=== PATIENT | male | born 1955 ===

== ENCOUNTER 2016-11-15 07:17 | Day surgery (SDC) | payer OTHER ==
[2016-11-14 14:00] VITALS: BMI 33.5
[2016-11-15 09:04] LABS: BASO # 0.01 K/mm3 (0.0-2.0); BASO % 0.2 % (0.0-3.0); EOS # 0.1 (0.0-0.7); EOS % 1.9 % (1.5-5.0); GRAN # 3.74 (1.4-6.5); GRAN % 59.6 % (50.0-68.0); HEMATOCRIT 43.6 % (42.0-52.0); LYMPH # 1.9 (1.2-3.4); LYMPH % 30.3 % (22.0-35.0); MEAN CELL VOLUME 89.3 fl (80.0-105.0); MEAN CORPUSCULAR HEMOGLOBIN 30.5 pg (25.0-35.0); MEAN CORPUSCULAR HGB CONC 34.2 g/dl (31.0-37.0); MEAN PLATELET VOLUME 10.3 fl (7.0-11.0); MONO # 0.5 (0.1-0.6); RED CELL DISTRIBUTION WIDTH 12.7 % (11.5-14.5); WHITE BLOOD COUNT 6.3 10^3/ul (4.5-11.0)
[2016-11-15 09:06] LABS: ALB/GLOB RATIO 1.4 (1.1-1.8); ALKALINE PHOSPHATASE 82 U/L (38-126); ALT/SGPT 43 U/L (7-56); AST/SGOT 29 U/L (17-59); BLOOD UREA NITROGEN 16 mg/dL (7-21); CALCIUM 8.7 mg/dL (8.4-10.5); CARBON DIOXIDE 26 mmol/L (21-33); CHLORIDE 108 mmol/L (98-107); GFR AFRICAN-AMERICAN > 60; GLUCOSE,RANDOM 115 mg/dL (70-110); SODIUM 144 mmol/L (132-148)
[2016-11-15] MEDS ORDERED: Propofol 10 mg/ml Inj (20 ML) ONE ×3 (09:13→10:24)
[2016-11-15] MEDS ORDERED: cefTRIAXone (Rocephin) 1 gm Inj ONE (09:35)
[2016-11-15] MEDS ORDERED: Midazolam 2 MG/2 ML VIAL ONE (09:53)
[2016-11-15] MEDS ORDERED: Gentamicin 80 mg/2mL Inj. IVPB ONE (10:05)
[2016-11-15] MEDS ORDERED: Gentamicin 80mg/50ml NS 80 MG/50 ML BAG IVPB ONE (10:09)
[2016-11-15] MEDS ORDERED: Lidocaine 2% Jelly (Uro-Jet) TOP ONE (10:15)
[2016-11-15] MEDS ORDERED: Lidocaine 2% Jelly (Uro-Jet) ONE (10:36)
[2016-11-15] MEDS ORDERED: HYDROmorphone 0.5 mg/0.5 ml ISec IVP PRN (10:43)
[2016-11-15] MEDS ORDERED: Lactated Ringer's 1,000 ML IV SCH (10:45)
[2016-11-15 10:53] VITALS: RESP 18
--- NOTE | 2016-11-15 11:35 | CARD ---
APPROVED REPORT EKG Measurement Heart [id number] <Conclusion> Normal sinus rhythm Normal ECG
[2016-11-15 11:42] VITALS: BP 116/67; PULSE 56; TEMP 97.7; O2SAT 97
[2016-11-15] MEDS ORDERED: Oxycodone/Acetaminophen 5/325 mg Tab PO PRN (12:13)
--- NOTE | 2016-11-28 08:49 | HP ---
UROLOGY ADMISSION HISTORY AND PHYSICAL, RELATIVE EMERGENCY ADMISSION REASON FOR ADMISSION: Gross hematuria and urinary retention. HISTORY OF PRESENT ILLNESS: Mr. Mello is a very pleasant gentleman, I know quite well from years back, I had treated him for bladder stone disease and urinary retention. He was then subsequently doing better with medical therapy, most recently presented with gross hematuria, and was found to have bladder stones and we previously did a cysto with a biopsy, actually an abnormality of the bladder neck. This is actually not malignancy, it is just inflammatory. He is here now because I was not able to get more stones out. He has been passing stones on his own. He is here for a cysto and removal of stones, but really our recommendations also would be consider having the prostatic urethra, but for now, for various reasons, particularly ejaculatory dysfunction, he is concerned. So, the plan today is cysto, removal of bladder stones, see the addendum at the end and I would then discuss of the prostate. The patient is interested in microwave thermal therapy. I have discussed with him the success; however, I have also discussed and agree the less invasion, less anesthesia, and less complications. After discussing options, plan for today is to removal of the stones as best as possible (I explained to the patient that sometimes it is difficult) and we discussed various options. See the addendum at the end of the note. The patient has gross hematuria, urinary retention, voiding dysfunction and is here now for cystoscopy removal of bladder stones and then further plans to follow specifically we are going to take care of the prostate. PAST MEDICAL AND SURGICAL HISTORY: No history of an IN or CVA; otherwise, unremarkable as listed on the chart. MEDICATIONS: As listed on the chart. SOCIAL HISTORY: He comes to the office with his . She is a part of the care. Otherwise an unremarkable history. No history of alcohol abuse. REVIEW OF SYSTEMS: No weight loss, chest pain, or shortness of breath. PHYSICAL EXAMINATION: GENERAL: A well-nourished male, in no apparent distress. VITAL SIGNS: Within normal limits as listed in the chart. HEENT: Sclerae anicteric, non-injected. No adenopathy. LUNGS: Clear. HEART: Normal S1 and S2. ABDOMEN: Overall soft and nontender. No flank mass. GENITALIA: He has normal phallus . RECTAL: A 30 g prostate that is smooth. LABORATORY DATA: See chart PSA, BUN and creatinine. DIAGNOSES: Gross hematuria, urinary retention, and bladder stones. PLAN: As follows, the patient is being admitted as a relative emergency re-presenting to me, I have not seen him for a while, and however, representing with the above findings, urinary retention and voiding dysfunction. We discussed options with the patient of risks, benefits, and alternatives. After discussing those options with the patient, he is here now for a cystoscopy, removal of bladder stones. 1. Antibiotic prophylaxis. 2. Cystoscopy. 3. Further plans will follow. I discussed with the patient risks, benefits, and alternatives. ADDENDUM: Please see the operative report. Basically, we were able to eliminate probably no less than 25 to 30 stones. There are still little two stone fragments, but various reasons, bleeding concerns and other factors, the patient has two little fragments that are about 2 mm each. I mentioned this and discussed with the patient. Further plans and recommendations. See other notes that are dictated regarding this patient. The plan will be for now keeping the Barney catheter in place and then discussing options. My recommendations can be for GreenLight laser TURP. The patient will be best served by this. Further plans to follow, but that would be the plans and recommendations. Jesse Sosa MD
--- NOTE | 2016-11-28 08:49 | OP ---
UROLOGY OPERATIVE REPORT PROCEDURE DATE: 11/15/2016 PREOPERATIVE DIAGNOSES: Urolithiasis, hematuria, bladder stones, urinary retention, and voiding dysfunction. POSTOPERATIVE DIAGNOSES: Urolithiasis, hematuria, bladder stones, urinary retention, and voiding dysfunction. PROCEDURE: Cystoscopy and removal of bladder stones. SURGEON: Sandro Sosa MD. ESTIMATED BLOOD LOSS: Less than 10 mL. COMPLICATIONS: There were no complications. INDICATIONS: See history and physical for further details. INDICATION FOR PROCEDURE: Basically as follows: The patient is a very pleasant gentleman who is years old. He has a tremendously large prostate. We discussed the options previously to the patient. My recommendation actually is for an open suprapubic prostatectomy. At this point, he has refused this and he wants other alternatives. See the plans and addendum at the end of the note because we are planning for microwave thermotherapy (my recommendation is that this will work at best half of the time) for this patient with retention and a tremendously large prostate but he is now here just to remove the bladder stones. I do want to mention that previously we have treated him. There is an old note on the patient as well I have had a chance to review. The patient has longstanding history of urinary retention, voiding dysfunction, and bladder stones. Previously, we were able to eliminate all the stones. Today, I do want to mention that there were two stones that are about a millimeter or 2 for whatever reason that we were not able to grab out but there was no less than 20-25 stones that we sent off to the lab. FINDINGS: Normal anterior urethra. No strictures. Verumontanum is visually occlusive, large. There is a minimal amount of intravesical component to the bladder, but it is long and large, it is about 3 cm (it is conceivable to be amenable to a TURP, although based on the presence of the bladder stones and the large volume and the recurrence, I have discussed with the patient and my real recommendation was to consider an open prostatectomy or consider a TURP, but the patient at this point is very concerned about other issues, particularly ejaculatory dysfunction and the like.) He is here now for the above procedure. DESCRIPTION OF PROCEDURE: After obtaining informed consent, the patient was placed on the table. Routine monitor was placed. Time-out was called to confirm the patient and positioning. We introduced the cystoscope via urethra. We identified the bladder stones. There are no other abnormalities. The verumontanum is about 3 cm visually occlusive. We identified the bladder stones. At this point, they are all relatively small. We used an plasterer rough and irrigated out a few. Upon reinspection, there is still more. We now converted to a resectoscope, a 26-Italian diameter. We irrigated copiously. Again, we were able to irrigate now out all the stones. There are still after inspecting a few different times. We used the evacuator and even the syringe to try to suck back but there seems to be two stones that are more embedded. At this point though, I was worried about bleeding and the like. So we replaced the patient with a Barney catheter via the urethra and terminated the procedure. Overall, the patient tolerated the procedure well without complication and was brought to recovery room in stable condition with an indwelling Barney catheter. ADDENDUM: I am going to discuss with the patient that my recommendation will be to consider prostatectomy either PVP green light laser TURP. For now, the patient is preferring to have microwave. I will discuss this the patient and the success rate. I did discuss with the patient other options regarding the stones because of obviously importance of being stone free. At this point, we had tried the concept of grabbing but for various reasons difficult to get everything established in the OR. We did accomplish the goal of removing a tremendous stone burden (I did discuss with the patient other options). The patient tolerated the procedure well without complications. So, at the termination of the procedure, the patient has an indwelling Barney catheter, he is in stable condition and brought to the recovery room in stable condition. Jesse Sosa MD
== END 2016-11-15 13:50 | disposition home or self-care (01) ==
LOC: SDS 07:17
PROVIDERS: ATTEND Urology
DX: N21.0 Calculus in bladder (principal); Z88.6 Allergy status to analgesic agent; Z88.0 Allergy status to penicillin; R33.9 Retention of urine, unspecified; R31.0 Gross hematuria
CPT/HCPCS: 36415; 52310; 80053; 85025; 88300; 93005; J0131; J1580 ×2; J2001; J2250; J2405; J2704; J2765; J3010; J7120 ×2